=== PATIENT | male | born 1990 | race Caucasian/White ===

== ENCOUNTER 2016-09-11 09:00 | Emergency (ER) | payer BC ==
[2016-09-11 09:16] VITALS: BP 131/80
[2016-09-11] MEDS ORDERED: Lidocaine 2% Viscous Solution 15 ML Cup PO ONE (09:17)
[2016-09-11] MEDS ORDERED: Benzocaine 20% Topical Spray UD MUCMEM ONE (09:17)
--- NOTE | 2016-09-11 09:28 | EDM.PDOC ---
ED HPI GENERAL MEDICAL PROBLEM - General Chief Complaint: ENT Problem Stated Complaint: ABCESS Time Seen by Provider: 09/11/16 09:17 - History of Present Illness INITIAL COMMENTS - FREE TEXT/NARRATIVE: HISTORY AND PHYSICAL: History of present illness: The patient is a 26 y/o male with no stated medical problems with a known history of multiple dental issues who presents with pain to the right upper premolar and molar area as well as swelling to the face. The pain and problems started last week and he did see the dentist on Monday, 2 days ago, and was prescribed amoxicillin. Plan is to see the dentist again on September 22 to have multiple teeth extracted from this area. The patient states he did not have any facial swelling until this morning and he was concerned about that. He has been taking his amoxicillin but says that the pain has been keeping him up and he does not have anything other than [id number] meds. He denies any fever chills or other systemic complaints. These 2 problems have been long-standing and are not acutely new but the pain is Review of systems: As per history of present illness and below otherwise all systems reviewed and negative. Past medical history: As per history of present illness and as reviewed below otherwise noncontributory. Surgical history: As per history of present illness and as reviewed below otherwise noncontributory. Social history: No reported history of drug or alcohol abuse. Family history: As per history of present illness and as reviewed below otherwise noncontributory. Physical exam: General: Well-developed well-nourished thin man who is nontoxic and speaking clearly in the ED. He has some visual right maxillary swelling on visual inspection HEENT: Atraumatic, normocephalic, pupils reactive, negative for conjunctival pallor or scleral icterus, mucous membranes moist, throat clear, neck supple, nontender, trachea midline. No cervical adenopathy or nuchal rigidity. There are multiple areas of dental disease and decay the most noteworthy is in the right upper premolar and molar areas where there are multiple dental caries and gum swelling appreciated. There is no fluctuance. Lungs: Clear to auscultation, breath sounds equal bilaterally, chest nontender. Heart: S1S2, regular, negative for clicks, rubs, or JVD. Abdomen: Soft, nondistended, nontender. NABS Genitourinary: Deferred. Rectal: Deferred. Extremities: Atraumatic, negative for cords or calf pain. Neurovascular unremarkable. Neuro: Awake, alert, oriented. Cranial nerves II through XII unremarkable. Cerebellum unremarkable. Motor and sensory unremarkable throughout. Exam nonfocal. Diagnostics: [] Therapeutics: Dental balls Impression: Dental caries/pain Definitive disposition and diagnosis as appropriate pending reevaluation and review of above. right upper Pain Score (Numeric/FACES): 8 - Related Data Allergies Allergy/AdvReac Type Severity Reaction Status Date / Time No Known Allergies Allergy Verified 09/11/16 09:14 Home Meds: Home Meds Amoxicillin 500 mg PO TID 09/11/16 [History] Past Medical History - Past Surgical History HEENT Surgical History: Reports: Oral surgery Social & Family History - Family History Family Medical History: Noncontributory - Tobacco Use Smoking Status *Q: Current Every Day Smoker Years of Tobacco use: 10 Packs/Tins Daily: 0.5 - Recreational Drug Use Recreational Drug Use: No ED ROS GENERAL - Review of Systems Review Of Systems: ROS reveals no pertinent complaints other than HPI. ED EXAM, GENERAL - Physical Exam Exam: See Below (See dictation) Course - Vital Signs Last Recorded V/S: Last Vital Signs Temp 36.6 C 09/11/16 09:14 Pulse 87 09/11/16 09:14 Resp 18 09/11/16 09:14 BP 131/80 09/11/16 09:14 Pulse Ox 97 09/11/16 09:14 - Orders/Labs/Meds Meds: Medications Discontinued Medications Generic Name Dose Route Start Last Admin Trade Name Freq PRN Reason Stop Dose Admin Benzocaine 2 each 09/11/16 09:17 Hurricaine One 20% MUCMEM 09/11/16 09:18 ONETIME ONE Lidocaine HCl 15 ml 09/11/16 09:17 Xylocaine 2% Viscous PO 09/11/16 09:18 ONETIME ONE Departure - Departure Time of Disposition: :27 Disposition: Home, Self-Care 01 Condition: good Clinical Impression: Pain, dental, Dental caries Forms: ED Department Discharge Additional Instructions: The following information is given to patients seen in the emergency department who are being discharged to home. This information is to outline your options for follow-up care. We provide all patients seen in our emergency department with a follow-up referral. The need for follow-up, as well as the timing and circumstances, are variable depending upon the specifics of your emergency department visit. If you don't have a primary care physician on staff, we will provide you with a referral. We always advise you to contact your personal physician following an emergency department visit to inform them of the circumstance of the visit and for follow-up with them and/or the need for any referrals to a consulting specialist. The emergency department will also refer you to a specialist when appropriate. This referral assures that you have the opportunity for followup care with a specialist. All of these measure are taken in an effort to provide you with optimal care, which includes your followup. Under all circumstances we always encourage you to contact your private physician who remains a resource for coordinating your care. When calling for followup care, please make the office aware that this follow-up is from your recent emergency room visit. If for any reason you are refused follow-up, please contact the [facility] emergency department at and ask to speak to the emergency department charge nurse. [facility] Primary care- Internal Medicine and Family [address] [address] Please apply ice to facial swelling and use [id number] Tylenol/ibuprofen as well as the dental balls given to you today during the daytime. Continue with her amoxicillin that you got from the dentist until it is finished. Please only use pain medications prescribed to you, [place], via [facility] at bedtime. Please also follow up with one of our clinic physicians and return to ER as needed and as discussed
== END 2016-09-11 09:47 | disposition home or self-care (01) ==
LOC: MW.ED 09:00
DX: K02.9 Dental caries, unspecified (principal); F17.210 Nicotine dependence, cigarettes, uncomplicated
CPT/HCPCS: 99282; A9270; 99283

== ENCOUNTER 2017-06-08 11:24 | Emergency (ER) | payer BC, OTHER ==
[2017-06-08] MEDS ORDERED: Albuterol/Ipratropium 3.0-0.5 MG/3 ML Neb Soln NEB ONE (14:02)
--- NOTE | 2017-06-08 14:02 | EDM.PDOC ---
ED HPI GENERAL MEDICAL PROBLEM - General Chief Complaint: Respiratory Problem Stated Complaint: PAIN IN LUNGS Time Seen by Provider: 06/08/17 13:57 - History of Present Illness INITIAL COMMENTS - FREE TEXT/NARRATIVE: HISTORY AND PHYSICAL: History of present illness: The patient is a 27-year-old male who tells me he has had bronchitis in the past and presents with a one-week history of cough which is dry and tacky and now he is saying that he has discomfort with his breathing and discomfort with the coughing that is concerning him. He has not tried much [id number]-hte-[id number] for cough medications and is only used cough drops. He has not had a fever runny nose sore throat vomiting or diarrhea. 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 The patient did not get his influenza shot this year Review of systems: As per history of present illness and below otherwise all systems reviewed and negative. Past medical history: As per history of present illness and as reviewed below otherwise noncontributory. Surgical history: As per history of present illness and as reviewed below otherwise noncontributory. Social history: No reported history of drug or alcohol abuse. Family history: As per history of present illness and as reviewed below otherwise noncontributory. Physical exam: Gen.: Well-developed well-nourished man who is nontoxic and speaking clearly and easily in the ED without breathlessness or nasal quality to voice. Vital signs were noted by me. HEENT: Atraumatic, normocephalic, pupils reactive, negative for conjunctival pallor or scleral icterus, mucous membranes moist, throat clear, neck supple, nontender, trachea midline. Lungs: Clear to auscultation, there is no work of breathing stridor or wheezing and no accessory muscle use breath sounds equal bilaterally, chest nontender. Heart: S1S2, regular rate and rhythm no overt murmurs Abdomen: Soft, nondistended, nontender. NABS Pelvis: Deferred Genitourinary: Deferred. Rectal: Deferred. Extremities: Atraumatic, negative for cords or calf pain. Neurovascular unremarkable. Neuro: Awake, alert, oriented. Cranial nerves II through XII unremarkable. Cerebellum unremarkable. Motor and sensory unremarkable throughout. Exam nonfocal. Diagnostics: Chest x-ray influenza swab Therapeutics: Duo neb, spacer and spacer teaching Solu-Medrol Impression: Bronchitis with persistent cough Definitive disposition and diagnosis as appropriate pending reevaluation and review of above. - Related Data Allergies Allergy/AdvReac Type Severity Reaction Status Date / Time No Known Allergies Allergy Verified 06/08/17 14:00 Home Meds: Home Meds . [No Known Home Meds] 06/08/17 [History] Past Medical History - Past Surgical History HEENT Surgical History: Reports: Oral Surgery Social & Family History - Family History Family Medical History: Noncontributory - Tobacco Use Smoking Status *Q: Current Every Day Smoker Years of Tobacco use: 10 Packs/Tins Daily: 0.5 - Recreational Drug Use Recreational Drug Use: No ED ROS GENERAL - Review of Systems Review Of Systems: ROS reveals no pertinent complaints other than HPI. ED EXAM, GENERAL - Physical Exam Exam: See Below (see dictation) Course - Vital Signs Last Recorded V/S: Last Vital Signs Temp 36.7 C 06/08/17 14:01 Pulse 78 06/08/17 14:01 Resp 18 06/08/17 14:01 BP 111/70 06/08/17 14:01 Pulse Ox 98 06/08/17 14:01 - Orders/Labs/Meds Orders: Active Orders 24 hr Category Date Time Status Communication Order [RC] STAT Care 06/08/17 14:56 Ordered RT Aerosol Therapy [RC] ASDIRECTED Care 06/08/17 14:02 Active methylPREDNISolone Sod Succ [Solu-MEDROL] Med 06/08/17 14:56 Once 125 mg IM ONETIME ONE Meds: Medications Discontinued Medications Generic Name Dose Route Start Last Admin Trade Name [place] PRN Reason Stop Dose Admin Albuterol/Ipratropium 3 ml 06/08/17 14:02 06/08/17 14:26 Duoneb 3.0-0.5 Mg/3 Ml NEB 06/08/17 14:03 3 ml ONETIME ONE Administration Departure - Departure Time of Disposition: 14:58 Disposition: Home, Self-Care 01 Condition: Good Clinical Impression: Bronchitis, Persistent cough - Discharge Information Referrals: PCP,None [Primary Care Provider] - Forms: ED Department Discharge Additional Instructions: The following information is given to patients seen in the emergency department who are being discharged to home. This information is to outline your options for follow-up care. We provide all patients seen in our emergency department with a follow-up referral. The need for follow-up, as well as the timing and circumstances, are variable depending upon the specifics of your emergency department visit. If you don't have a primary care physician on staff, we will provide you with a referral. We always advise you to contact your personal physician following an emergency department visit to inform them of the circumstance of the visit and for follow-up with them and/or the need for any referrals to a consulting specialist. The emergency department will also refer you to a specialist when appropriate. This referral assures that you have the opportunity for followup care with a specialist. All of these measure are taken in an effort to provide you with optimal care, which includes your followup. Under all circumstances we always encourage you to contact your private physician who remains a resource for coordinating your care. When calling for followup care, please make the office aware that this follow-up is from your recent emergency room visit. If for any reason you are refused follow-up, please contact the [facility] emergency department at and ask to speak to the emergency department charge nurse. [facility] Primary care- Internal Medicine and Family [address] [address] Use albuterol with a spacer you were given every 6 hours for the next 24-36 hours and then every 6 hours as needed. Please take prednisone starting the prescription tomorrow. Push hydration and please call and follow-up with one of our clinic providers for reevaluation and further care. Please use cough medication only when you're at home trying to go to sleep and return to ER as needed as discussed - My Orders Last 24 Hours: My Active Orders 06/08/17 14:02 RT Aerosol Therapy [RC] ASDIRECTED 06/08/17 14:56 Communication Order [RC] STAT methylPREDNISolone Sod Succ [Solu-MEDROL] 125 mg IM ONETIME ONE - Assessment/Plan Last 24 Hours: My Active Orders 06/08/17 14:02 RT Aerosol Therapy [RC] ASDIRECTED 06/08/17 14:56 Communication Order [RC] STAT methylPREDNISolone Sod Succ [Solu-MEDROL] 125 mg IM ONETIME ONE
--- NOTE | 2017-06-08 14:35 | CR ---
PA and lateral chest Clinical history chest pain and shortness of breath Comparison: None Findings: The heart lungs mediastinum and bony thorax are normal. Given history of chest pain there i s no pneumothorax. Impression: Normal chest
[2017-06-08] MEDS ORDERED: methylPREDNISolone Sodium Succinate 125 MG/2 ML SDV IM ONE (14:56)
[2017-06-08 19:20] VITALS: BP 116/74
== END 2017-06-08 15:23 | disposition home or self-care (01) ==
LOC: MW.ED 11:24
DX: J40 Bronchitis, not specified as acute or chronic (principal); F17.210 Nicotine dependence, cigarettes, uncomplicated
CPT/HCPCS: 71046; 87804; 96372; 99285; J2930; 99284

== ENCOUNTER 2018-08-17 10:31 | Emergency (ER) | payer SELFPAY ==
--- NOTE | 2018-08-17 11:06 | EDM.PDOC ---
ED HPI GENERAL MEDICAL PROBLEM - General Chief Complaint: Lower Extremity Injury/Pain Stated Complaint: KNEE INJURY Time Seen by Provider: 08/17/18 10:35 Source of Information: Reports: Patient History Limitations: Reports: No Limitations - History of Present Illness INITIAL COMMENTS - FREE TEXT/NARRATIVE: HISTORY AND PHYSICAL: History of present illness: Patient is a 28-year-old male presents to the ED today with concern of left knee pain 2 days after an injury that occurred at work. Patient states he had to come a 5 gallon buckets that rolled into the side of his left leg. Since then , patient has applied an Real wrap and iced the knee, but still rates his pain an 8 out of 10. He has not taken any medication for her symptoms. Patient states he has been able to walk but that it is quite painful. Patient states the pain is worse when he tries to bend his knee. Patient denies fever, chills, chest pain, shortness of breath, or cough. Denies headache, neck stiff ness, change in vision, syncope, or near syncope. Denies nausea, vomiting, abdominal pain, diarrhea, constipation, or dysuria. Has not noted any blood in urine or stool. Patient has been eating and drinking appropriately. Review of systems: As per history of present illness and below otherwise all systems reviewed and negative. Past medical history: As per history of present illness and as reviewed below otherwise noncontributory. Surgical history: As per history of present illness and as reviewed below otherwise noncontributory. Social history: See social history for further information Family history: As per history of present illness and as reviewed below otherwise noncontributory. Physical exam: General: Patient is alert, oriented, and in no acute distress. Patient sitting comfortably on exam table. HEENT: Atraumatic, normocephalic, pupils equal and reactive bilaterally, negative for conjunctival pallor or scleral icterus, mucous membranes moist, TMs normal bilaterally, throat clear, neck supple, nontender, trachea midline. No drooling or trismus noted. No meningeal signs. No hot potato voice noted. Lungs: Clear to auscultation, breath sounds equal bilaterally, chest nontender. Heart: S1S2, regular rate and rhythm without overt murmur Abdomen: Soft, nondistended, nontender. Negative for masses or hepatosplenomegaly. Negative for costovertebral tenderness. Pelvis: Stable nontender. Genitourinary: Deferred. Rectal: Deferred. Skin: Intact, warm, dry. No lesions or rashes noted. Extremities: Exam of left knee is limited due to pain. Patient has moderate- severe pain with flexion of left knee as well as with anterior/posterior drawer and vagus/valgus stress. No obvious deformities/effusion noted. Otherwise, negative for cords or calf pain. Neurovascular unremarkable. Dorsalis pedis and posterior tibial pulses grossly intact of the left leg with capillary refill less than 2 seconds. Neuro: Awake, alert, oriented. Cranial nerves II through XII unremarkable. Cerebellum unremarkable. Motor and sensory unremarkable throughout. Exam nonfocal. Notes: Discussed the importance of follow up with a primary care provider or orthopedic provider. Supportive care measures were reviewed and discussed. Voices understanding and is agreeable to plan of care. Denies any further questions or concerns at this time. Diagnostics: Knee XR Therapeutics: Toradol, Knee immobilizer, crutches Prescription: Diclofenac Impression: Knee injury, left Plan: 1. Rest, ice, elevate the affected extremity. You can apply ice 15 minutes on, 15 minutes off. 2. Tylenol and/or Ibuprofen as directed for pain management or discomfort. 3. Follow up with the Orthopedic provider as discussed. Return to the ED as needed and as discussed. Definitive disposition and diagnosis as appropriate pending reevaluation and review of above. left knee Pain Score (Numeric/FACES): 9 - Related Data Allergies Allergy/AdvReac Type Severity Reaction Status Date / Time No Known Allergies Allergy Verified 08/17/18 10:43 Home Meds: Home Meds Diclofenac Sodium [Voltaren] 75 mg PO BIDMEALS PRN #10 tab.cr 08/17/18 [Rx] Past Medical History - Past Health History Medical/Surgical History: Denies Medical/Surgical History - Infectious Disease History Infectious Disease History: Reports: Chicken Pox - Past Surgical History HEENT Surgical History: Reports: Oral Surgery Social & Family History - Family History Family Medical History: Noncontributory - Tobacco Use Smoking Status *Q: Current Every Day Smoker Years of Tobacco use: 12 Packs/Tins Daily: 0.5 - Recreational Drug Use Recreational Drug Use: Yes Drug Use in Last 12 Months: Yes Recreational Drug Type: Reports: Cocaine, Marijuana/Hashish Recreational Drug Use Frequency: Not Used In Over 1 Month Review of Systems - Review of Systems Review Of Systems: ROS reveals no pertinent complaints other than HPI. ED EXAM, GENERAL - Physical Exam Exam: See Below (see dictation) Course - Vital Signs Last Recorded V/S: Last Vital Signs Temp 35.8 C 08/17/18 10:44 Pulse 93 08/17/18 10:44 Resp 18 08/17/18 10:44 BP 140/80 08/17/18 10:44 Pulse Ox 97 08/17/18 10:44 - Orders/Labs/Meds Orders: Active Orders 24 hr Category Date Time Status Communication Order [RC] STAT Care 08/17/18 12:26 Active Meds: Medications Discontinued Medications Generic Name Dose Route Start Last Admin Trade Name Freq PRN Reason Stop Dose Admin Ketorolac Tromethamine 60 mg 08/17/18 12:24 08/17/18 12:32 Toradol IM 08/17/18 12:25 60 mg ONETIME ONE Administration Departure - Departure Time of Disposition: 13:17 Disposition: Home, Self-Care 01 Clinical Impression: Knee injury Qualifiers: Encounter type: initial encounter Laterality: left Qualified Code(s): S89.92XA - Unspecified injury of left lower leg, initial encounter - Discharge Information Prescriptions: Diclofenac Sodium [Voltaren] 75 mg PO BIDMEALS PRN #10 tab.cr PRN Reason: Pain Referrals: PCP,Unknown [Primary Care Provider] - Forms: ED Department Discharge Additional Instructions: The following information is given to patients seen in the emergency department who are being discharged to home. This information is to outline your options for follow-up care. We provide all patients seen in our emergency department with a follow-up referral. The need for follow-up, as well as the timing and circumstances, are variable depending upon the specifics of your emergency department visit. If you don't have a primary care physician on staff, we will provide you with a referral. We always advise you to contact your personal physician following an emergency department visit to inform them of the circumstance of the visit and for follow-up with them and/or the need for any referrals to a consulting specialist. The emergency department will also refer you to a specialist when appropriate. This referral assures that you have the opportunity for follow-up care with a specialist. All of these measure are taken in an effort to provide you with optimal care, which includes your follow-up. Under all circumstances we always encourage you to contact your private physician who remains a resource for coordinating your care. When calling for follow-up care, please make the office aware that this follow-up is from your recent emergency room visit. If for any reason you are refused follow-up, please contact the [facility] Emergency Department at and asked to speak to the emergency department charge nurse. [facility] Primary Care [address] [place] [address] [id number] [address] [address] 1. Rest, ice, elevate the affected extremity. You can apply ice 15 minutes on, 15 minutes off. 2. Tylenol and/or Ibuprofen as directed for pain management or discomfort. Take medications as prescribed. 3. Follow up with the Orthopedic provider as discussed. Return to the ED as needed and as discussed. - My Orders Last 24 Hours: My Active Orders 08/17/18 12:26 Communication Order [RC] STAT - Assessment/Plan Last 24 Hours: My Active Orders 08/17/18 12:26 Communication Order [RC] STAT
[2018-08-17] MEDS ORDERED: Ketorolac 60 MG/2 ML SDV IM ONE (12:24)
--- NOTE | 2018-08-17 13:15 | CR ---
EXAM DATE: 08/17/18 PATIENT'S AGE: 28 Patient: BETHANY BERMUDEZ Facility: [facility] Site . Site : 1990 Study: XRay-Knee Left [id number]/[id number] 11:45:18 AM Ordering Physician: Doctor Peck Final Report: INDICATION: Left knee pain. COMPARISON: Four view study left knee. FINDINGS: No evidence of fracture or dislocation. No bone or soft tissue abnormalities. No evidence of suprapatellar synovial effusion. IMPRESSION: Negative radiographic examination of the left knee. Dictated by Drake Max MD @ Aug 17 2018 11:51AM Signed by: Drake Max MD @08/17/2018 11:52:04 AM (Electronic Signature) Report Signed by Proxy. [email or web address]
[2018-08-17 13:48] VITALS: BP 138/84
== END 2018-08-17 13:31 | disposition home or self-care (01) ==
LOC: MW.ED 10:31
DX: S89.92XA Unspecified injury of left lower leg, initial encounter (principal); F17.210 Nicotine dependence, cigarettes, uncomplicated; W22.8XXA Striking against or struck by other objects, initial encounter; Y99.0 Civilian activity done for income or pay
CPT/HCPCS: 73562; 96372; 99283; J1885; 99282

== ENCOUNTER 2018-08-18 15:38 | Emergency (ER) | payer SELFPAY ==
[2018-08-18 16:06] VITALS: BP 156/70
[2018-08-18] MEDS ORDERED: Acetaminophen/HYDROcodone 325-7.5 MG Tab PO STA (18:34)
--- NOTE | 2018-08-18 18:38 | EDM.PDOC ---
ED HPI GENERAL MEDICAL PROBLEM - General Chief Complaint: Lower Extremity Injury/Pain Stated Complaint: F/U LEFT KNEE PAIN Time Seen by Provider: 08/18/18 18:35 Source of Information: Reports: Patient - History of Present Illness INITIAL COMMENTS - FREE TEXT/NARRATIVE: HISTORY AND PHYSICAL: History of present illness: []Patient presents with knee pain, he was seen very recently with x-ray, initial exam was concerning for ligamentous injury, he refuses exam of the knee today he remains in an immobilizer using crutches he has been using ice and Cataflam without benefit O fever nausea vomiting chills sweats Review of systems: As per history of present illness and below otherwise all systems reviewed and negative. Past medical history: As per history of present illness and as reviewed below otherwise noncontributory. Surgical history: As per history of present illness and as reviewed below otherwise noncontributory. Social history: No reported history of drug or alcohol abuse. Family history: As per history of present illness and as reviewed below otherwise noncontributory. Physical exam: HEENT: Atraumatic, normocephalic, pupils reactive, negative for conjunctival pallor or scleral icterus, mucous membranes moist, throat clear, neck supple, nontender, trachea midline. Lungs: Clear to auscultation, breath sounds equal bilaterally, chest nontender. Heart: S1S2, regular, negative for clicks, rubs, or JVD. Abdomen: Soft, nondistended, nontender. Negative for masses or hepatosplenomegaly. Negative for costovertebral tenderness. Pelvis: Stable nontender. Genitourinary: Deferred. Rectal: Deferred. Extremities: Atraumatic, negative for cords or calf pain. Neurovascular unremarkable. Right knee hip and ankle and affected right knee is swollen no ballooning of the patella no redness warmth or open lesion neurovascularly intact entire limb Neuro: Awake, alert, oriented. Cranial nerves II through XII unremarkable. Cerebellum unremarkable. Motor and sensory unremarkable throughout. Exam nonfocal. Diagnostics: [Clinical ] Therapeutics: []Del Valle Continue ice and other treatments follow-up witthe pedis per previous impression: [Knee pain/injury Possible ligamentous injury ] Definitive disposition and diagnosis as appropriate pending reevaluation and review of above. Left Knee Pain Score (Numeric/FACES): 10 - Related Data Allergies Allergy/AdvReac Type Severity Reaction Status Date / Time No Known Allergies Allergy Verified 08/18/18 16:07 Home Meds: Home Meds Diclofenac Sodium [Voltaren] 75 mg PO BIDMEALS PRN #10 tab.cr 08/17/18 [Rx] Past Medical History - Past Health History Medical/Surgical History: Denies Medical/Surgical History - Infectious Disease History Infectious Disease History: Reports: Chicken Pox - Past Surgical History HEENT Surgical History: Reports: Oral Surgery Social & Family History - Family History Family Medical History: Noncontributory - Tobacco Use Smoking Status *Q: Current Every Day Smoker Years of Tobacco use: 13 Packs/Tins Daily: 0.5 - Caffeine Use Caffeine Use: Reports: None - Recreational Drug Use Recreational Drug Use: No Review of Systems - Review of Systems Review Of Systems: See Below ED EXAM, GENERAL - Physical Exam Exam: See Below Course - Vital Signs Last Recorded V/S: Last Vital Signs Temp 97.2 F 08/18/18 16:04 Pulse 93 08/18/18 16:04 Resp 20 08/18/18 16:04 BP 156/70 H 08/18/18 16:04 Pulse Ox 98 08/18/18 16:04 - Orders/Labs/Meds Orders: Active Orders 24 hr Category Date Time Status Acetaminophen/HYDROcodone [Del Valle 325-7.5 MG] Med 08/18/18 18:34 Stat 1 tab PO NOW STA Departure - Departure Time of Disposition: 18:37 Disposition: Home, Self-Care 01 Condition: Good Clinical Impression: Knee injury Qualifiers: Encounter type: initial encounter Laterality: left Qualified Code(s): S89.92XA - Unspecified injury of left lower leg, initial encounter - Discharge Information Referrals: PCP,None [Primary Care Provider] - Additional Instructions: Continue current treatment Medication as prescribed Stop Cataflam Follow-up with orthopedist as per previously discussed Continue crutches and immobilizer [facility] [address], [address] [place] [address] my orthopedic The following information is given to patients seen in the emergency department who are being discharged to home. This information is to outline your options for follow-up care. We provide all patients seen in our emergency department with a follow-up referral. The need for follow-up, as well as the timing and circumstances, are variable depending upon the specifics of your emergency department visit. If you don't have a primary care physician on staff, we will provide you with a referral. We always advise you to contact your personal physician following an emergency department visit to inform them of the circumstance of the visit and for follow-up with them and/or the need for any referrals to a consulting specialist. The emergency department will also refer you to a specialist when appropriate. This referral assures that you have the opportunity for follow-up care with a specialist. All of these measure are taken in an effort to provide you with optimal care, which includes your follow-up. Under all circumstances we always encourage you to contact your private physician who remains a resource for coordinating your care. When calling for follow-up care, please make the office aware that this follow-up is from your recent emergency room visit. If for any reason you are refused follow-up, please contact the [facility] emergency department at and asked to speak to the emergency department charge nurse. - My Orders Last 24 Hours: My Active Orders 08/18/18 18:34 Acetaminophen/HYDROcodone [Del Valle 325-7.5 MG] 1 tab PO NOW STA - Assessment/Plan Last 24 Hours: My Active Orders 08/18/18 18:34 Acetaminophen/HYDROcodone [Del Valle 325-7.5 MG] 1 tab PO NOW STA
== END 2018-08-18 19:14 | disposition home or self-care (01) ==
LOC: MW.ED 15:38
DX: S89.92XD Unspecified injury of left lower leg, subsequent encounter (principal); W22.8XXD Striking against or struck by other objects, subsequent encounter; F17.210 Nicotine dependence, cigarettes, uncomplicated; Y99.0 Civilian activity done for income or pay
CPT/HCPCS: 99283; A9270